=== PATIENT | female | born 1975 | race Caucasian/White ===

== ENCOUNTER 2018-08-17 16:33 | Emergency (ER) | payer OTHER ==
[~2018-08-17] VITALS: Ht 170.2 cm; Wt 98.9 kg
[2018-08-17 17:17] VITALS: BP 155/61
[2018-08-17] MEDS ORDERED: KETOROLAC TROMETH 60MG/2ML VIAL IM ONE (20:45)
[2018-08-17] MEDS ORDERED: methylPREDNISolone SOD SUCC 125 MG/2 ML VL IM ONE (20:45)
== END 2018-08-17 21:20 | disposition home or self-care (01) ==
LOC: ER 16:38
DX: R07.0 Pain in throat (principal); M54.2 Cervicalgia
CPT/HCPCS: 70490

== ENCOUNTER 2018-12-20 19:05 | Emergency (ER) | payer OTHER ==
[~2018-12-20] VITALS: Ht 170.2 cm; Wt 86.2 kg
[2018-12-20 19:21] VITALS: BP 135/54
== END 2018-12-20 22:23 | disposition home or self-care (01) ==
LOC: ER 19:05
DX: S93.401A Sprain of unspecified ligament of right ankle, initial encounter (principal); X50.1XXA Overexertion from prolonged static or awkward postures, initial encounter; Y93.02 Activity, running; Y92.89 Other specified places as the place of occurrence of the external cause; Y99.8 Other external cause status
CPT/HCPCS: 73610

== ENCOUNTER 2019-02-20 16:14 | Emergency (ER) | payer OTHER ==
[~2019-02-20] VITALS: Ht 172.7 cm; Wt 81.6 kg
[2019-02-20 16:33] VITALS: BP 123/55
== END 2019-02-20 19:15 | disposition home or self-care (01) ==
LOC: ER 16:17
DX: R51 Headache (principal); F41.9 Anxiety disorder, unspecified
CPT/HCPCS: 70486